=== PATIENT | female | born 1980 ===

== ENCOUNTER 2020-08-20 07:54 | Emergency (ER) | payer SELFPAY ==
[~2020-08-20] VITALS: Ht 165.1 cm; Wt 80.0 kg
[2020-08-20 07:57] VITALS: BP 106/68
--- NOTE | 2020-08-20 08:07 | NUR ---
Pt given socks and shoes.
--- NOTE | 2020-08-20 08:50 | NUR ---
Pt requesting to watch TV and to eat. All needs provided for.
== END 2020-08-20 09:27 | disposition home or self-care (01) ==
LOC: ED 08:55
DX: F15.950 Other stimulant use, unspecified with stimulant-induced psychotic disorder with delusions (principal); Z91.14 Patient's other noncompliance with medication regimen
CPT/HCPCS: 99283